=== PATIENT | male | born 2000 | race Caucasian/White ===

== ENCOUNTER 2023-08-16 11:47 | Emergency (ER) | payer OTHER, SELFPAY ==
[2023-08-16 12:00] VITALS: BP 134/63; PULSE 70; RESP 18; TEMP 36.5; O2SAT 99
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
== END 2023-08-16 12:21 | disposition home or self-care (01) ==
PROVIDERS: Emergency Provider Nurse Practitioner
DX: J01.90 Acute sinusitis, unspecified (principal)
CPT/HCPCS: 99213; G0463